=== PATIENT | male | born 1965 ===

== ENCOUNTER 2018-09-27 13:44 | Emergency (ER) | payer BC, OTHER ==
[~2018-09-27] VITALS: Ht 180.3 cm; Wt 95.0 kg
[2018-09-27 13:53] VITALS: BP 153/101
== END 2018-09-27 15:23 | disposition home or self-care (01) ==
LOC: ER 13:45
DX: R25.3 Fasciculation (principal); R07.89 Other chest pain
CPT/HCPCS: 93005; 99283